=== PATIENT | male | born 1990 | race Caucasian/White ===

== ENCOUNTER 2025-04-25 14:00 | Emergency (ER) | payer BC, SELFPAY ==
[2025-04-25 14:20] VITALS: BP 123/78; PULSE 80; RESP 16; TEMP 36.4; O2SAT 99
[2025-04-25] MEDS: dexAMETHasone SOD PHOS INJ 10 MG/ML 1 ML VIAL IM (14:44)
--- NOTE | 2025-04-25 15:01 | ED.GENADULT ---
HPI - General Adult General Chief complaint: Extremity Injury, Upper Stated complaint: Swelling of hands-multiple hornet stings yesterday Time Seen by Provider: 04/25/25 14:28 History of Present Illness HPI narrative: This is a 34-year-old male presenting after being stung by ground soreness. Patient works in [employer]. He was stung multiple times around his hand and head. He had swelling to the site. No other signs of allergic reaction such as throat swelling difficulty breathing or GI symptoms. He came in today because the swelling in his hands was worse. There is no significant erythema. He says they are itchy. He has been taking Benadryl with minimal relief. Related Data Allergies Allergy/AdvReac Type Severity Reaction Status Date / Time hornet venom AdvReac Intermediate Swelling Verified 04/25/25 14:25 Exam Narrative: APPEARANCE: No apparent distress. Head: atraumatic. EYES: EOMI, NOSE: Atraumatic NECK: Trachea midline RESPIRATORY: No increased rate of breathing clear to auscultation CARDIOVASCULAR: RRR, pulses +2 in all extremities, cap refill less than 2 seconds ABDOMINAL: Non-distended MUSCULOSKELETAl: No obvious deformities NEURO: Alert. Moving 4/4 extremities SKIN:: Edema of the right upper extremity PSYCHIATRIC: Normal affect Course Vital Signs Vital signs: Vital Signs Temperature 97.6 F 04/25/25 14:20 Pulse Rate 80 04/25/25 14:20 Respiratory Rate 16 04/25/25 14:20 Blood Pressure 123/78 04/25/25 14:20 Pulse Oximetry 99 04/25/25 14:20 Oxygen Delivery Room Air 04/25/25 14:20 Temperature 97.6 F 04/25/25 14:20 Pulse Rate 80 04/25/25 14:20 Respiratory Rate 16 04/25/25 14:20 Blood Pressure 123/78 04/25/25 14:20 Pulse Oximetry 99 04/25/25 14:20 Oxygen Delivery Room Air 04/25/25 14:20 Medical Decision Making MDM Narrative Medical decision making narrative: -Course: 34-year-old male presenting with swelling after being stung multiple times by ground hornets. He is requesting a shot dexamethasone was provided. He is also requesting a work note which was provided. This is more likely envenomation as opposed to a severe allergic rxn/anaphylaxis. regardless patient will be discharged w/ a rx for an epi pen. given return precautions. / -DDX includes but is not limited to: Inflammation, allergic reaction Vital Signs Vital Signs: Vital Signs Temperature 97.6 F 04/25/25 14:20 Pulse Rate 80 04/25/25 14:20 Respiratory Rate 16 04/25/25 14:20 Blood Pressure 123/78 04/25/25 14:20 Pulse Oximetry 99 04/25/25 14:20 Oxygen Delivery Room Air 04/25/25 14:20 Temperature 97.6 F 04/25/25 14:20 Pulse Rate 80 04/25/25 14:20 Respiratory Rate 16 04/25/25 14:20 Blood Pressure 123/78 04/25/25 14:20 Pulse Oximetry 99 04/25/25 14:20 Oxygen Delivery Room Air 04/25/25 14:20 Discharge Plan Discharge Clinical Impression: Hornet sting Patient Disposition: Home Condition: Stable Instructions: Antibiotic Form, Insect Bite or Sting (ED) Additional Instructions: You were seen in the emergency department after a hornet sting. The swelling should continue to improve over the next several days. If it is getting worse, you develop severe pain or redness please return to ED for re-evaluation. Please carry an epi pen w/ you and use it if you are stung and develop shortness of breath, throat swelling, dizziness or fainting. Patient Language: Salvadorean Prescriptions: New epinephrine 0.3 mg/0.3 mL auto-injector 0.3 mg IM ONCE Qty: 2 0RF Rx Instructions: as a single dose; may repeat once Follow-up/Referrals: PHYSICIAN NOT ON STAFF,NONSTAFF [Primary Care Provider]
== END 2025-04-25 15:19 | disposition home or self-care (01) ==
LOC: ANHED 15:12
PROVIDERS: Emergency Provider Emergency Medicine
DX: T63.451A Toxic effect of venom of hornets, accidental (unintentional), initial encounter (principal)
CPT/HCPCS: 96372; 99283; J1100